=== PATIENT | female | born 1995 | race Caucasian/White ===

== ENCOUNTER 2021-05-09 21:22 | Emergency (ER) | payer MEDICAID ==
[2021-05-09] MEDS ORDERED: Sodium Chloride 0.9% 10 ML Syringe FLUSH PRN (21:32)
[2021-05-09] MEDS ORDERED: Iopamidol 612 MG/ML 100 ML Bottle IV PRN (21:51)
[2021-05-09] MEDS ORDERED: Sodium Chloride 0.9% 75 ML IV SCH (22:00)
--- NOTE | 2021-05-09 22:03 | EDM.PDOC ---
ED HPI GENERAL MEDICAL PROBLEM - General Chief Complaint: Abdominal Pain Stated Complaint: LOWER ABD PAIN Time Seen by Provider: 05/09/21 21:30 Source of Information: Reports: Patient History Limitations: Reports: No Limitations - History of Present Illness INITIAL COMMENTS - FREE TEXT/NARRATIVE: Chantell is a 25-year-old female presenting to the ED for evaluation of acute onset of left lower quadrant abdominal pain. She describes the pain is sharp and stabbing. The she reports that the pain does not move. She has experienced this before but cannot recall when the last time she was worked up for it. She states that every time they work it up they are not able to find anything which is frustrating to her. She denies any fever, chills, cough or shortness of breath, nausea, vomiting, constipation or diarrhea. Her last bowel movement was 2 days ago which she says is normal for her. She is had no change in appetite. She denies any bloody stools or melena. She has had no tarry stools. She has had a cholecystectomy but denies any other abdominal surgeries. She has had no significant change in her [employer] therapy except for the addition of a Mirena. Because of the IUD, she has not had a menses recently but denies that she is . She is rating the pain a 7 out of 10. Nothing seems to make it worse or better. He denies any urinary symptoms including urgency, frequency, or burning with urination. She has had no urinary incontinence. She denies any heavy lifting or straining. 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 Neurological History: Reports: Migraines Psychiatric History: Reports: ADD, ADHD, Anxiety, Depression - Past Surgical History GI Surgical History: Reports: Cholecystectomy Social & Family History - Tobacco Use Tobacco Use Status *Q: Never Tobacco User - Recreational Drug Use Recreational Drug Use: No - Living Situation & Occupation Living situation: Reports: with Significant Other ED ROS GENERAL - Review of Systems Review Of Systems: See Below Constitutional: Reports: No Symptoms HEENT: Reports: No Symptoms Respiratory: Reports: No Symptoms Cardiovascular: Reports: No Symptoms Endocrine: Reports: No Symptoms GI/Abdominal: Reports: Abdominal Pain (Left lower quadrant abdominal pain that is sharp and stabbing. It does not change location.) : Reports: No Symptoms Musculoskeletal: Reports: No Symptoms Skin: Reports: No Symptoms Neurological: Reports: No Symptoms Psychiatric: Reports: No Symptoms Hematologic/Lymphatic: Reports: No Symptoms Immunologic: Reports: No Symptoms ED EXAM, GI/ABD - Physical Exam Exam: See Below Exam Limited By: No Limitations General Appearance: Alert, Anxious, Mild Distress Throat/Mouth: Normal Inspection, Normal Lips, Normal Oropharynx, Normal Voice, No Airway Compromise Head: Atraumatic, Normocephalic Neck: Normal Inspection, Supple, Non-Tender, Full Range of Motion Respiratory/Chest: No Respiratory Distress, Lungs Clear, Normal Breath Sounds Cardiovascular: Normal Peripheral Pulses, Regular Rate, Rhythm GI/Abdominal Exam: Normal Bowel Sounds, Soft, Tender (Mild tenderness in the left upper and lower quadrant) Back Exam: Normal Inspection, Full Range of Motion. No: CVA Tenderness (L) Extremities: Normal Inspection, Normal Range of Motion Neurological: Alert, Oriented, Normal Cognition, No Motor/Sensory Deficits Psychiatric: Normal Affect, Normal Mood Skin Exam: Warm, Dry, Intact, Normal Color Lymphatic: No Adenopathy Course - Vital Signs Last Recorded V/S: Last Vital Signs Temp 36.7 C 05/09/21 21:40 Pulse 75 05/09/21 23:23 Resp 18 05/09/21 23:23 BP 115/69 05/09/21 23:23 Pulse Ox 96 05/09/21 23:23 - Orders/Labs/Meds Orders: Active Orders 24 hr Category Date Time Status Iopamidol [Isovue-300 (61%)] Med 05/09/21 21:51 Active 100 ml IV . DIRECTED PRN Sodium Chloride 0.9% [Normal Saline] 75 ml Med 05/09/21 22:00 Active IV ASDIRECTED Sodium Chloride 0.9% [Saline Flush] Med 05/09/21 21:32 Active 10 ml FLUSH ASDIRECTED PRN Saline Lock Insert [OM.PC] Routine Oth 05/09/21 21:32 Ordered Medication Orders Sodium Chloride (Normal Saline) 75 mls @ 3 mls/sec IV ASDIRECTED SPENSER Last Admin: 05/09/21 22:08 Dose: 3 mls/sec Documented by: CASSANDRA Iopamidol (Iopamidol 612 Mg/Ml 100 Ml Bottle) 100 ml IV . DIRECTED PRN PRN Reason: RADIOLOGY EXAM Stop: 05/10/21 21:52 Last Admin: 05/09/21 22:08 Dose: 100 ml Documented by: CASSANDRA Sodium Chloride (Sodium Chloride 0.9% 10 Ml Syringe) 10 ml FLUSH ASDIRECTED PRN PRN Reason: Keep Vein Open Last Admin: 05/09/21 21:53 Dose: 10 ml Documented by: JOANN Labs: Laboratory Tests 05/09/21 05/09/21 05/09/21 Range/Units 21:42 21:42 21:45 WBC 7.8 (4.5-11.0) K/uL RBC 4.70 (3.30-5.50) M/uL Hgb 14.1 (12.0-15.0) g/dL Hct 41.5 (36.0-48.0) % MCV 88 (80-98) fL MCH 30 (27-31) pg MCHC 34 (32-36) % Plt Count 253 (150-400) K/uL Neut % (Auto) 59.7 (36-66) % Lymph % (Auto) 29.0 (24-44) % [place] % (Auto) 9.2 H (2-6) % Eos % (Auto) 1.3 L (2-4) % Baso % (Auto) 0.8 (0-1) % Sodium 143 (140-148) mmol/L Potassium 3.7 (3.6-5.2) mmol/L Chloride 107 (100-108) mmol/L Carbon Dioxide 26 (21-32) mmol/L Anion Gap 10.5 (5.0-14.0) mmol/L BUN 8 (7-18) mg/dL Creatinine 0.7 (0.6-1.0) mg/dL Est Cr Clr Drug Dosing 104.24 mL/min Estimated GFR (MDRD) > 60 (>60) Glucose 83 (74-106) mg/dL Calcium 9.0 (8.5-10.1) mg/dL Total Bilirubin 0.4 (0.2-1.0) mg/dL AST 9 L (15-37) U/L ALT 19 (12-78) U/L Alkaline Phosphatase 81 (46-116) U/L C-Reactive Protein 0.08 (0.0-0.3) mg/dL Total Protein 6.6 (6.4-8.2) g/dL Albumin 3.6 (3.4-5.0) g/dL Globulin 3.0 (2.3-3.5) g/dL Albumin/Globulin Ratio 1.2 (1.2-2.2) Urine Color Yellow (YELLOW) Urine Appearance Slightly cloudy A (CLEAR) Urine pH 5.5 (5.0-8.0) Ur Specific [place] >= 1.030 (1.008-1.030) Urine Protein Negative (NEGATIVE) mg/dL Urine Glucose (UA) Negative (NEGATIVE) mg/dL Urine Ketones Negative (NEGATIVE) mg/dL Urine Occult Blood Large H (NEGATIVE) Urine Nitrite Negative (NEGATIVE) Urine Bilirubin Negative (NEGATIVE) Urine Urobilinogen 0.2 (0.2-1.0) EU/dL Ur Leukocyte Esterase Small H (NEGATIVE) Urine RBC 5-10 H (0-5) Urine WBC 10-20 H (0-5) Ur Epithelial Cells Many Amorphous Sediment Occasional Urine Bacteria Few Urine Mucus Many Urine Other See note Urine HCG, Qual 05/09/21 Range/Units 21:45 WBC (4.5-11.0) K/uL RBC (3.30-5.50) M/uL Hgb (12.0-15.0) g/dL Hct (36.0-48.0) % MCV (80-98) fL MCH (27-31) pg MCHC (32-36) % Plt Count (150-400) K/uL Neut % (Auto) (36-66) % Lymph % (Auto) (24-44) % [place] % (Auto) (2-6) % Eos % (Auto) (2-4) % Baso % (Auto) (0-1) % Sodium (140-148) mmol/L Potassium (3.6-5.2) mmol/L Chloride (100-108) mmol/L Carbon Dioxide (21-32) mmol/L Anion Gap (5.0-14.0) mmol/L BUN (7-18) mg/dL Creatinine (0.6-1.0) mg/dL Est Cr Clr Drug Dosing mL/min Estimated GFR (MDRD) (>60) Glucose (74-106) mg/dL Calcium (8.5-10.1) mg/dL Total Bilirubin (0.2-1.0) mg/dL AST (15-37) U/L ALT (12-78) U/L Alkaline Phosphatase (46-116) U/L C-Reactive Protein (0.0-0.3) mg/dL Total Protein (6.4-8.2) g/dL Albumin (3.4-5.0) g/dL Globulin (2.3-3.5) g/dL Albumin/Globulin Ratio (1.2-2.2) Urine Color (YELLOW) Urine Appearance (CLEAR) Urine pH (5.0-8.0) Ur Specific [place] (1.008-1.030) Urine Protein (NEGATIVE) mg/dL Urine Glucose (UA) (NEGATIVE) mg/dL Urine Ketones (NEGATIVE) mg/dL Urine Occult Blood (NEGATIVE) Urine Nitrite (NEGATIVE) Urine Bilirubin (NEGATIVE) Urine Urobilinogen (0.2-1.0) EU/dL Ur Leukocyte Esterase (NEGATIVE) Urine RBC (0-5) Urine WBC (0-5) Ur Epithelial Cells Amorphous Sediment Urine Bacteria Urine Mucus Urine Other Urine HCG, Qual Negative Meds: Medications Generic Name Dose Route Start Last Admin Trade Name Freq PRN Reason Stop Dose Admin Sodium Chloride 75 mls @ 3 mls/sec 05/09/21 22:00 05/09/21 22:08 Normal Saline IV 3 mls/sec ASDIRECTED SPENSER Administration Iopamidol 100 ml 05/09/21 21:51 05/09/21 22:08 Iopamidol 612 Mg/Ml 100 Ml Bottle IV 05/10/21 21:52 100 ml . DIRECTED PRN Administration RADIOLOGY EXAM Sodium Chloride 10 ml 05/09/21 21:32 05/09/21 21:53 Sodium Chloride 0.9% 10 Ml Syringe FLUSH 10 ml ASDIRECTED PRN Administration Keep Vein Open Discontinued Medications Generic Name Dose Route Start Last Admin Trade Name Freq PRN Reason Stop Dose Admin Ketorolac Tromethamine 15 mg 05/09/21 22:42 05/09/21 22:48 Ketorolac 30 Mg/Ml Sdv IVPUSH 05/09/21 22:43 15 mg ONETIME ONE Administration - Radiology Interpretation Free Text/Narrative:: I reviewed the CT of the abdomen and pelvis with contrast. The patient has several nephrolithiasis on the left and one seen on the right. There is significant bilateral renal scarring but no evidence for nephrosis or hydroureter. There is no stone evident in either ureter. There is no other intra-abdominal acute finding to account for her pain. - Re-Assessments/Exams Free Text/Narrative Re-Assessment/Exam: 05/09/21 22:21 on exam, the patient has more left upper and lower abdominal pain to deep palpation. She has normal bowel sounds and no guarding rebound tenderness. There is no CVA tenderness to percussion. Labs were obtained showing a normal CBC and comprehensive metabolic panel. Her C-reactive protein is normal at 0.08. Her hCG urine is negative for . Urinalysis shows normal leukocyte esterase and nitrites, however, she has 5-10 RBCs and 10-20 WBCs with calcium oxalate crystals suggesting perhaps her cause is kidney stone. She has been undergoing a CT of the abdomen and pelvis with contrast. 05/09/21 23:[address] of the abdomen and pelvis with contrast showed bilateral nephrolithiasis without ureterolithiasis, hydronephrosis or hydroureter. She does have 10-20 WBCs and 5-10 RBCs suggesting a urinary tract infection but has nothing for pyelonephritis either on exam or on CT. There is no other significant findings to account for her left lower quadrant pain. It is possible that she may have passed a small stone earlier, however, without hydroureter or hydronephrosis this is less likely. Did treat the patient's pain with Toradol 15 mg IV push. At this time, I think that she should start cephalexin for possible UTI although nitrite and leukocyte esterase are negative, I cannot account for her 10-20 WBCs. We will discharge her home with follow-up with her primary care provider. Indications to return to the ED were discussed. Departure - Departure Time of Disposition: 23:30 Disposition: Home, Self-Care 01 Clinical Impression: Bilateral nephrolithiasis Urinary tract infection Qualifiers: Urinary tract infection type: acute cystitis Hematuria presence: with hematuria Qualified Code(s): N30.01 - Acute cystitis with hematuria - Discharge Information Instructions: Kidney Stones, Urinary Tract Infection, Adult Referrals: PCP,None [Primary Care Provider] - Forms: ED Department Discharge Care Plan Goals: Your urine suggest that you have the beginning of a urinary tract infection. We are going to start you on antibiotic called cephalexin 1 tablet twice daily for the next 5 days. We also found on your work-up that you have bilateral kidney stones but no evidence for a stone in the ureter recently passing a stone. There was no other findings on your work-up to account for your left-sided abdominal pain. Recommend following up with your primary care provider within the week for recheck of your urine. The antibiotic has been sent out to the [facility] machine so you may start it tonight. Sepsis Event Note (ED) - Evaluation Sepsis Screening Result: No Definite Risk - Focused Exam Vital Signs: Vital Signs Temp Pulse Resp BP Pulse Ox 05/09/21 23:23 75 18 115/69 96 05/09/21 22:37 77 109/67 100 05/09/21 21:40 36.7 C 82 17 119/74 96 05/09/21 21:39 36.7 C 82 17 119/74 96 - Problem List & Annotations (1) Bilateral nephrolithiasis SNOMED Code(s): 07277896 Code(s): N20.0 - CALCULUS OF KIDNEY Status: Acute Priority: Medium Current Visit: Yes (2) Urinary tract infection SNOMED Code(s): 25230252 Code(s): N39.0 - URINARY TRACT INFECTION, SITE NOT SPECIFIED Status: Acute Priority: Medium Current Visit: Yes Qualifiers: Urinary tract infection type: acute cystitis Hematuria presence: with hematuria Qualified Code(s): N30.01 - Acute cystitis with hematuria - Problem List Review Problem List Initiated/Reviewed/Updated: Yes - My Orders Last 24 Hours: My Active Orders 05/09/21 21:32 Sodium Chloride 0.9% [Saline Flush] 10 ml FLUSH ASDIRECTED PRN Saline Lock Insert [OM.PC] Routine 05/09/21 21:51 Iopamidol [Isovue-300 (61%)] 100 ml IV . DIRECTED PRN 05/09/21 22:00 Sodium Chloride 0.9% [Normal Saline] 75 ml IV ASDIRECTED - Assessment/Plan Last 24 Hours: My Active Orders 05/09/21 21:32 Sodium Chloride 0.9% [Saline Flush] 10 ml FLUSH ASDIRECTED PRN Saline Lock Insert [OM.PC] Routine 05/09/21 21:51 Iopamidol [Isovue-300 (61%)] 100 ml IV . DIRECTED PRN 05/09/21 22:00 Sodium Chloride 0.9% [Normal Saline] 75 ml IV ASDIRECTED
[2021-05-09] MEDS ORDERED: Ketorolac 30 MG/ML SDV IVPUSH ONE (22:42)
--- NOTE | 2021-05-09 23:13 | CRLCT ---
For Patients: As a result of the Century Cures Act, medical imaging exams and procedure reports are released immediately into your electronic medical record. You may view this report before your referring provider. If you have questions, please contact your health care provider. INDICATION: Left lower quadrant pain TECHNIQUE: Axial images were obtained from the diaphragm to the pubic symphysis. Reformats were obtained in the coronal and sagittal plane. IV Contrast: 100 cc Isovue-300 Oral Contrast: None COMPARISON: None. FINDINGS: Lower chest: Unremarkable. Liver: Unremarkable. Normal in size and attenuation. No masses. Gallbladder and bile ducts: Status post cholecystectomy. Spleen: Unremarkable. Normal in size without mass. Pancreas: Unremarkable. No mass or inflammation. Adrenal glands: Unremarkable. No nodules. Kidneys: Bilateral renal scarring with nephrolithiasis. Subcentimeter hypodense lesion within the right kidney which is too small for characterization although likely represents a renal cyst. No ureteral stone or hydronephrosis. Vasculature: Unremarkable. GI tract: No dilated loops of large or small intestine. Pelvis: Intrauterine device present although the IUD appears somewhat angled and the left limb may extend into the myometrium (series 2, image 114). Bones: Unremarkable for age. IMPRESSION: 1. Nephrolithiasis without evidence of hydronephrosis or ureteral stone. 2. No dilated bowel or localizing inflammation. 3. Intrauterine device although the left limb appears angled, see comments above. Please note that all CT scans at this facility use dose modulation, iterative reconstruction, and/or weight-based dosing when appropriate to reduce radiation dose to as low as reasonably achievable. Dictated by Aleksander Bailey MD @ 05/09/2021 11:11:[address] Aleksander Bailey @ May 09 2021 11:11PM
[2021-05-09 23:23] VITALS: BP 115/69; PULSE 75
== END 2021-05-09 23:48 | disposition home or self-care (01) ==
LOC: JP.ED 21:22
DX: N20.0 Calculus of kidney (principal); N30.01 Acute cystitis with hematuria
CPT/HCPCS: 36415; 74177; 80053; 81001; 81025; 85025; 86140; 96374; 99284; J1885; Q9967